=== PATIENT | male | born 1990 | race Caucasian/White ===

== ENCOUNTER 2017-12-19 20:42 | Inpatient (IN) | payer OTHER ==
[~2017-12-19] VITALS: Ht 182.9 cm; Wt 113.9 kg
[2017-12-19 21:34] LABS: PLATELET COUNT 307 x10^3mcL (130-400); RED CELL DISTRIBUTION WIDTH 12.1 % (11.5-14.5)
[2017-12-19 21:44] LABS: CALCIUM 9.1 mg/dL (8.5-10.1); CARBON DIOXIDE 28.2 mmol/L (21-32); CHLORIDE SERUM 100 mmol/L (98-107); CREATININE SERUM 0.9 mg/dL (0.7-1.3); GFR1 > 60 mL/min; GLUCOSE SERUM 129 mg/dL (74-106); POTASSIUM SERUM 3.5 mmol/L (3.5-5.1); SODIUM SERUM 135 mmol/L (136-145)
[2017-12-19 21:48] LABS: ALBUMIN 3.8 g/dL (3.4-5.0); ALKALINE PHOSPHATASE 62 U/L (46-116); ALT/SGPT 34 U/L (16-63); AST/SGOT 14 U/L (15-37); BILIRUBIN TOTAL 0.4 mg/dL (0.20-1.00); LIPASE 75 IU/L (73-393); TOTAL PROTEIN, SERUM 8.1 g/dL (6.4-8.2)
[2017-12-19 22:02] LABS: BAND NEUTROPHIL 1 % (0-10); BASOPHIL 0 % (0-2); MONOCYTE 11 % (0-7); SEGMENTED NEUTROPHILS 77 % (37-75); rbc morphology (normal/abnorm) ABNORMAL (NORMAL)
[2017-12-20 00:06] VITALS: BP 139/73
[2017-12-20 00:11] VITALS: Ht 182.9 cm; Wt 113.9 kg
[2017-12-20 05:25] VITALS: BP 109/53
[2017-12-20 06:54] LABS: CALCIUM 8.5 mg/dL (8.5-10.1); CARBON DIOXIDE 29.7 mmol/L (21-32); CHLORIDE SERUM 102 mmol/L (98-107); CREATININE SERUM 1.2 mg/dL (0.7-1.3); GFR1 > 60 mL/min; GLUCOSE SERUM 112 mg/dL (74-106); POTASSIUM SERUM 3.2 mmol/L (3.5-5.1); SODIUM SERUM 138 mmol/L (136-145)
[2017-12-20 09:54] VITALS: BP 112/65
[2017-12-20 15:12] LABS: UA SPECIFIC GRAVITY 1.015 (1.005-1.035); microscopic required? YES; urine erythrocyte 3+ (NEGATIVE)
[2017-12-20 16:43] VITALS: BP 116/60
[2017-12-20 20:39] VITALS: BP 114/61
[2017-12-21 05:11] VITALS: BP 113/68
[2017-12-21 06:37] LABS: PLATELET COUNT 272 x10^3mcL (130-400); RED CELL DISTRIBUTION WIDTH 12.4 % (11.5-14.5)
[2017-12-21 06:40] LABS: CALCIUM 8.6 mg/dL (8.5-10.1); CARBON DIOXIDE 32.7 mmol/L (21-32); CHLORIDE SERUM 104 mmol/L (98-107); CREATININE SERUM 0.8 mg/dL (0.7-1.3); GFR1 > 60 mL/min; GLUCOSE SERUM 103 mg/dL (74-106); POTASSIUM SERUM 3.7 mmol/L (3.5-5.1); SODIUM SERUM 139 mmol/L (136-145)
[2017-12-21 07:09] LABS: BASOPHIL % 0 % (0-2)
[2017-12-21 09:45] VITALS: BP 120/63
[2017-12-21 16:18] VITALS: BP 107/61
[2017-12-21 21:05] VITALS: BP 117/68
[2017-12-22 05:31] VITALS: BP 119/76
[2017-12-22 09:28] VITALS: BP 118/71
[2017-12-22 10:10] LABS: CALCIUM 8.7 mg/dL (8.5-10.1); CARBON DIOXIDE 28.7 mmol/L (21-32); CHLORIDE SERUM 103 mmol/L (98-107); CREATININE SERUM 0.8 mg/dL (0.7-1.3); GFR1 > 60 mL/min; GLUCOSE SERUM 111 mg/dL (74-106); POTASSIUM SERUM 3.4 mmol/L (3.5-5.1); SODIUM SERUM 136 mmol/L (136-145)
[2017-12-22 10:19] LABS: BASOPHIL % 0.5 % (0-2); PLATELET COUNT 315 x10^3mcL (130-400); RED CELL DISTRIBUTION WIDTH 12.3 % (11.5-14.5)
[2017-12-22 12:32] VITALS: BP 117/73
[2017-12-22 17:06] VITALS: BP 115/77
[2017-12-22 20:40] VITALS: BP 117/72
[2017-12-23 05:24] VITALS: BP 113/70
[2017-12-23 08:59] VITALS: BP 133/77
[2017-12-23 15:08] VITALS: BP 133/77
== END 2017-12-23 16:10 | disposition home or self-care (01) | DRG 340 ==
LOC: ED 20:42 → MU 23:02
PROVIDERS: Emergency Medicine; Internal Medicine
PROC: 0DTJ4ZZ Resection of Appendix, Percutaneous Endoscopic Approach (ICD-10-PCS; principal; 2017-12-19)
DX: K35.2 Acute appendicitis with generalized peritonitis (principal); E87.6 Hypokalemia
CPT/HCPCS: J2175; J2250; J2270; J2405; J2543; J3010; J3480; J3490; J7042